=== PATIENT | male | born 1995 | race Caucasian/White ===

== ENCOUNTER → 2024-03-21 14:18 | Outpatient (REF) | payer OTHER, SELFPAY | LOC: RAD 14:18 | PROVIDERS: ATTENDING PHYSICIAN Student in an Organized Health Care Education/Training Program | DX: S05.50XA Penetrating wound with foreign body of unspecified eyeball, initial encounter (principal) | CPT/HCPCS: 70030 ==

== ENCOUNTER 2024-09-07 18:33 | Emergency (ER) | payer OTHER, SELFPAY ==
[2024-09-07 18:41] VITALS: BP 145/81
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
[2024-09-07] MEDS: OMNICEF 300 MG PO (22:36)
== END 2024-09-07 23:09 | disposition home or self-care (01) ==
LOC: EMR 18:33
PROVIDERS: EMERGENCY PHYSICIAN Emergency Medicine
DX: S61.431A Puncture wound without foreign body of right hand, initial encounter (principal); W26.0XXA Contact with knife, initial encounter
CPT/HCPCS: 99283; 73130